=== PATIENT | male | born 1965 | race Caucasian/White ===

== ENCOUNTER 2018-12-17 15:16 | Emergency (ER) | payer OTHER ==
[2018-12-17 15:31] VITALS: BMI 21.4
--- NOTE | 2018-12-17 15:32 | PDOC ---
Rapid Medical Evaluation Time Seen by Provider: 12/17/18 15:27 Medical Evaluation: 12/17/18 15:27 I have performed a brief in-person evaluation of this patient. The patient presents with a chief complaint of:sniffed what he thought was heroin and thinks it fentanyl Pertinent physical exam findings:tired appearing no distress I have ordered the following:tox creen cbc, cmp The patient will proceed to the ED for further evaluation. 12/17/18 15:30 12/17/18 15:30 Discharge Disposition - Diagnosis Drug abuse - Referrals - Patient Instructions - Post Discharge Activity
--- NOTE | 2018-12-17 16:07 | PDOC ---
Attending Attestation - HPI HPI: 12/17/18 16:49 The patient is a 53-year-old male, with a past medical history of asthma, heroin abuse, who presents to the ED for overdose. Patient admits to sniffing four bags today and believes that one of the bags was heroin. He is now complaining of weakness and generalized body aches. The patient was in detox from October to November, but began using heroin 1 week ago. He denies any chest pain, palpitations, diaphoresis, or shortness of breath. He denies any nausea, vomiting, diarrhea, or abdominal pain. Denies any falls or loss of consciousness. Allergies: NKDA Social History: Heroin use, tobacco use (7 cigarettes per day). Surgical History: None <Jane Williamson - Last Filed: 12/17/18 16:49> - Physicial Exam PE: 12/17/18 17:45 GENERAL: Awake, alert, and fully oriented, in no acute distress HEAD: No signs of trauma EYES: PERRLA, EOMI, sclera anicteric, conjunctiva clear ENT: Auricles normal inspection, hearing grossly normal, nares patent, oropharynx clear without exudates. Moist mucosa NECK: Normal ROM, supple, no lymphadenopathy, JVD, or masses LUNGS: Breath sounds equal, clear to auscultation bilaterally. No wheezes, and no crackles HEART: Regular rate and rhythm, normal S1 and S2, no murmurs, rubs or gallops ABDOMEN: Soft, nontender, normoactive bowel sounds. No guarding, no rebound. No masses EXTREMITIES: Normal range of motion, no edema. No clubbing or cyanosis. No cords, erythema, or tenderness NEUROLOGICAL: Cranial nerves II through XII grossly intact. Normal speech. Ambulates with a very steady gait. SKIN: Warm, Dry, normal turgor, no rashes or lesions noted. <Sandhya Goldstein - Last Filed: 12/17/18 17:45> - Resident Resident Name: Alida Rivera - ED Attending Attestation I have performed the following: I have examined & evaluated the patient, The case was reviewed & discussed with the resident, I agree w/resident's findings & plan, Exceptions are as noted - Medical Decision Making 12/17/18 16:07 I, Dr. Myrna Villatoro, DO, attest that this document has been prepared under my direction and personally reviewed by me in its entirety. I further attest, that it accurately reflects all work, treatment, procedures and medical decision -making performed by me. 12/17/18 17:26 a/p: 53yo with heroin/fentanyl use today -snorted heroin at 2p today -states he was stumbling down the street so someone brought him to the ED -pt denies falls -denies ott, neck pain, cp/sob, abd pain, n/v/d -pt with clear speech -states he was clear for 2m after being in rehab and used for the first time today -denie SI/HI -denies all complaints -states he ate today -pt states he does not want to go to detox -pt is ambulatory in the ED with a steady gait -states he will call a cab to go home -denies cocaine use, denies alcohol use 12/17/18 17:28 pt is stable for dc to home <Myrna Villatoro - Last Filed: 12/17/18 18:24> Heart Score/ECG Review - ECG Intrepretation Comment:: 12/17/18 18:24 sinus at 72, nl axis, nl interval, no acute st/t wave findings <Myrna Villatoro - Last Filed: 12/17/18 18:24> Attestations - Attestations 12/17/18 16:50 Documentation prepared by Jane Williamson, acting as curator medical museum for Myrna Villatoro DO. <Jane Williamson - Last Filed: 12/17/18 16:49> - Attestations 12/17/18 17:46 Documentation prepared by Sandhya Goldstein, acting as curator medical museum for Myrna Villatoro DO. <Sandhya Goldstein - Last Filed: 12/17/18 17:45>
[2018-12-17 16:30] LABS: BASO % 0.6 % (0-2.0); EOS % 1.6 % (0-4.5); HEMATOCRIT 39.3 % (35.4-49); HEMOGLOBIN 13.2 GM/dL (11.7-16.9); LYMPH % 31.4 % (8-40); MCH 31.5 pg (25.7-33.7); MCHC 33.7 g/dl (32.0-35.9); MEAN CELL VOLUME 93.6 fl (80-96); MEAN PLT VOLUME 8.7 fl (7.5-11.1); MONO % 8.4 % (3.8-10.2); PLATELET COUNT 220 K/MM3 (134-434); RDW 13.9 % (11.9-15.9); WHITE BLOOD COUNT 8.2 K/mm3 (4.0-10.0)
--- NOTE | 2018-12-17 16:33 | PDOC ---
History of Present Illness - General Chief Complaint: Overdose Stated Complaint: SICK Time Seen by Provider: 12/17/18 15:27 History Source: Patient Exam Limitations: No Limitations - History of Present Illness Initial Comments: 12/17/18 16:29 Pt is a 53yo M with PMH of Asthma, Heroin use presenting to ED for overdose. Pt says that he thinks one of the 4 bags he sniffed today was heroin because he was stumbling around. He denies falling, losing consciousness, chest pain, diaphoresis, abdominal pain, n/v/d. He endorses feeling weak and generalized body pains. He was in detox from October to November and started using heroin again 1 week ago. Denies use of other substances. PMD: none PMH: see hpi PSH: none Meds: inhaler, suboxone Allergies: nkda Social: heroin use, 7 cigarettes/day Past History - Past Medical History Allergies/Adverse Reactions: Allergies Allergy/AdvReac Type Severity Reaction Status Date / Time No Known Allergies Allergy Verified 12/17/18 15:28 Asthma: Yes COPD: No - Suicide/Smoking/Psychosocial Hx Smoking History: Current every day smoker Have you smoked in the past 12 months: Yes Number of Cigarettes Smoked Daily: 8 Information on smoking cessation initiated: No Hx Alcohol Use: No Drug/Substance Use Hx: Yes (3-4 BAGS DAILY) Review of Systems - Review of Systems Constitutional: Yes: Weakness. No: Chills, Diaphoresis, Fever HEENTM: No: Symptoms Reported Respiratory: No: Symptoms reported Cardiac (ROS): No: Symptoms Reported ABD/GI: No: Symptoms Reported : No: Symptoms Reported Musculoskeletal: Yes: Other (generalized body pain) Integumentary: No: Symptoms Reported Neurological: No: Symptoms reported *Physical Exam - Vital Signs Last Vital Signs Temp Pulse Resp BP Pulse Ox 98.4 F 94 H 18 105/65 98 12/17/18 15:28 12/17/18 15:28 12/17/18 15:28 12/17/18 15:28 12/17/18 15:28 - Physical Exam General Appearance: Yes: Nourished, Appropriately Dressed. No: Apparent Distress HEENT: positive: EOMI, JEMAL (constricted pupils), Normal ENT Inspection Neck: positive: Trachea midline, Supple Respiratory/Chest: positive: Lungs Clear, Normal Breath Sounds Cardiovascular: positive: Regular Rhythm, Regular Rate. negative: JVD, Murmur Vascular Pulses: Carotid (R): 2+, Carotid (L): 2+, Dorsalis-Pedis (R): 2+, Doralis-Pedis (L): 2+ Gastrointestinal/Abdominal: positive: Normal Bowel Sounds, Flat, Soft. negative : Tender Musculoskeletal: negative: CVA Tenderness Extremity: positive: Normal Capillary Refill Integumentary: positive: Normal Color, Dry, Warm Neurologic: positive: naval designer II-XII NML intact, Fully Oriented, Alert, Normal Mood/ Affect, Normal Response, Motor Strength 01/18 ED Treatment Course - LABORATORY CBC & Chemistry Diagram: 12/17/18 16:06 12/17/18 16:06 Medical Decision Making - Medical Decision Making 12/17/18 16:32 Pt is a 53yo M with PMH of Asthma, Heroin use presenting to ED for overdose. Pt says that he thinks one of the 4 bags he sniffed today was heroin because he was stumbling around. He denies falling, losing consciousness, chest pain, diaphoresis, abdominal pain, n/v/d. He endorses feeling weak and generalized body pains. He was in detox from October to November and started using heroin again 1 week ago. Denies use of other substances. Vitals: wnl PE: constricted pupils, normal respiratory rate, saturating well on RA, ambulatory. lungs cta, no neurological deficits labs ordered by kareen 12/17/18 17:24 labs wnl. ekg normal Not interested in detox at this time. Do not need UA at this time. Stable for dc home. given return precautions *DC/Admit/Observation/Transfer Diagnosis at time of Disposition: Drug abuse, Heroin use - Discharge Dispostion Disposition: HOME Condition at time of disposition: Good Decision to Admit order: No - Referrals - Patient Instructions Printed Discharge Instructions: DI for Drug Abuse and Drug Addiction Additional Instructions: You were seen in the emergency room today for using heroin. Your blood tests are normal. I highly recommend going back to detox if you want to. It is located at [address] [place] [address]. It is open at 8am every day. Come back to the emergency room if you use again, you pass out, you are going through withdrawal or if any new concerning symptom develops. Thank you - Post Discharge Activity
[2018-12-17 17:09] LABS: ALBUMIN 3.4 g/dl (3.4-5.0); ALK PHOS 60 U/L (45-117); ANION GAP 8 MMOL/L (8-16); BILIRUBIN,TOTAL 0.6 mg/dL (0.2-1); BLOOD UREA NITROGEN 16 mg/dL (7-18); CALCIUM 8.7 mg/dL (8.5-10.1); CHLORIDE 107 mmol/L (98-107); CO2 26 mmol/L (21-32); CREATININE 1.1 mg/dL (0.55-1.3); GLUCOSE,RANDOM 122 mg/dL (74-106); POTASSIUM 4.1 mmol/L (3.5-5.1); SGOT/AST 25 U/L (15-37); SGPT/ALT 26 U/L (13-61); SODIUM 141 mmol/L (136-145); TOT PROT 6.7 g/dl (6.4-8.2)
[2018-12-17 17:28] VITALS: BP 101/59; PULSE 75; TEMP 98
--- NOTE | 2018-12-18 11:49 | EKG ---
Test Reason : Blood Pressure : / mmHG Vent. Rate : 072 BPM Atrial Rate : 072 BPM P-R Int : 128 ms QRS Dur : 098 ms QT Int : 398 ms P-R-T Axes : 053 027 037 degrees QTc Int : 435 ms NORMAL SINUS RHYTHM NORMAL ECG NO PREVIOUS ECGS AVAILABLE Confirmed by SAMARA NICK MD ([id number]) on 12/18/2018 11:48:54 AM Referred By: Confirmed By:SAMARA NICK MD
== END 2018-12-17 17:33 | disposition home or self-care (01) ==
LOC: JER 15:16
DX: F11.10 Opioid abuse, uncomplicated (principal); F19.10 Other psychoactive substance abuse, uncomplicated; J45.909 Unspecified asthma, uncomplicated; F17.210 Nicotine dependence, cigarettes, uncomplicated
CPT/HCPCS: 36415; 80053; 85025; 93005; 93010; 99282-25